=== PATIENT | female | born 1950 | race Caucasian/White ===

== ENCOUNTER → 2017-11-15 | Outpatient (CLI) | payer MEDICARE, OTHER ==
[~2017-11-15] MED LIST: BIMA.03OPS; BRIM.15SO; ESCI10; LEVSOD125; LOSA25; METO25ER PO; TIMDOROPSO; Ventolin/Prove6.7 GM; WARF7.5
== END | disposition home or self-care (01) ==
LOC: LAB 12:32
DX: N39.0 Urinary tract infection, site not specified (principal)
CPT/HCPCS: 87086

== ENCOUNTER → 2017-11-26 | Outpatient (CLI) | payer MEDICARE, OTHER | LOC: LAB 13:19 | DX: N39.0 Urinary tract infection, site not specified (principal) | CPT/HCPCS: 87077; 87086; 87186 ==

== ENCOUNTER → 2019-05-29 | Outpatient (CLI) | payer MEDICARE, OTHER | END | disposition home or self-care (01) | LOC: LAB SHORT 17:14 → LAB 17:14 | DX: R30.0 Dysuria (principal) | CPT/HCPCS: 87077; 87086; 87186 ==

== ENCOUNTER → 2019-11-18 | Outpatient (CLI) | payer MEDICARE, OTHER | END | disposition home or self-care (01) | LOC: LAB FUT 10-26 10:00 → EDSTATUS 10-26 10:00 → LAB SHORT 12:23 → LAB 12:23 | DX: N39.0 Urinary tract infection, site not specified (principal); R30.0 Dysuria | CPT/HCPCS: 87077; 87086; 87186 ==

== ENCOUNTER → 2020-03-09 | Outpatient (CLI) | payer MEDICARE, OTHER | END | disposition home or self-care (01) | LOC: LAB SHORT 17:57 → LAB 17:57 | DX: R30.0 Dysuria (principal) | CPT/HCPCS: 87086 ==

== ENCOUNTER → 2020-08-19 | Outpatient (CLI) | payer MEDICARE, OTHER ==
[~2020-08-19] MED LIST changes: +ALBU90OI INH; +ALPR.25 PO; +ASCO500 PO; +Azopt10 ML BOTHEYES; +B COMPLEX FORM0.4 MG PO; +BIMATOPROST2.5 ML BOTHEYES; +EUTHYROX125 MCG PO; +LOSA50 PO; +MERIBIN5 M1 PO; +Magnesium250 MG PO; +TIMDOROPSO BOTHEYES; +VITAMIN D310 MC4 PO; +WARF7.5 PO; +[UNRECOGNIZED DRUG - OTHER] PO
== END ==
LOC: PLD 10:21 → LAB SHORT 10:21
DX: L08.89 Other specified local infections of the skin and subcutaneous tissue (principal); L72.8 Other follicular cysts of the skin and subcutaneous tissue
CPT/HCPCS: 88304

== ENCOUNTER 2021-01-18 07:24 | Day surgery (SDC) | payer MEDICARE, OTHER ==
[~2021-01-18] VITALS: Ht 170.2 cm; Wt 90.7 kg
[~2021-01-18 07:24] MED LIST changes: +JANTOVEN2.5 M1 PO; +MULVITA PO; +NITR100CA PO; +PSEU120ER PO
--- NOTE | 2021-01-18 09:54 | NUR ---
[employer]ENT SANJAY DID IV START.Ambulatory in Day Surgery. History, Chart, Medications and Allergies reviewed before start of procedure.Patient confirms NPO status and agrees with scheduled surgery. Patient reports completing Chlorhexadine shower X2 prior to admission to hospital.Surgical site prepped with 2% Chlorhexidine cloth wipe. Lungs clear T/O to Auscultation. Patient States Post-Procedure ride home has been arranged WITH .
--- NOTE | 2021-01-18 11:31 | NUR ---
01/18/21 1131 IRINA,PATSY PT UNMBILICUS NOTED TO RED PRIOR TO PREPPING PT, SKIN INTACT, NO DRAINAGE NOTED.
--- NOTE | 2021-01-18 13:08 | NUR ---
Dressing to procedure site clean, dry, intact with no visible drainage, swelling, erythema or bruising noted.
--- NOTE | 2021-01-18 14:12 | NUR ---
Dressing to procedure site clean, dry, intact with no visible drainage, swelling, erythema or bruising noted. Discharge instructions reviewed with patient. Patient verbalizes understanding. Copy given to patient to take home. Discharged via wheelchair to private car for ride home.
== END 2021-01-18 14:13 | disposition home or self-care (01) ==
LOC: ORSCMMR 07:24 → ORD 10:00 → ORSCMMR 14:13
PROVIDERS: Surgery
PROC: BF031ZZ Plain Radiography of Gallbladder and Bile Ducts using Low Osmolar Contrast (ICD-10-PCS; principal; 2021-01-18 09:00)
PROC: 0FT44ZZ Resection of Gallbladder, Percutaneous Endoscopic Approach (ICD-10-PCS; principal; 2021-01-18 09:00)
DX: K80.10 Calculus of gallbladder with chronic cholecystitis without obstruction (principal); I10 Essential (primary) hypertension; J45.909 Unspecified asthma, uncomplicated; E03.9 Hypothyroidism, unspecified; Z79.899 Other long term (current) drug therapy; Z79.01 Long term (current) use of anticoagulants
CPT/HCPCS: 74300; 83690; 88304; A9270; C1729; J0690; J1100; J2250; J2370; J2405; J2704; J2710; J3010; J7120

== ENCOUNTER → 2021-06-18 | Outpatient (CLI) | payer MEDICARE, OTHER | END | disposition home or self-care (01) | LOC: LAB SHORT 13:14 → LAB 13:14 | DX: L98.8 Other specified disorders of the skin and subcutaneous tissue (principal) | CPT/HCPCS: 88305; 88312 ==

== ENCOUNTER → 2021-07-05 | Outpatient (CLI) | payer MEDICARE | LOC: LAB 15:33 → LAB SHORT 15:33 | DX: R30.0 Dysuria (principal) | CPT/HCPCS: 87086 ==

== ENCOUNTER → 2022-06-06 | Outpatient (CLI) | payer MEDICARE | END | disposition home or self-care (01) | LOC: LAB 17:41 → LAB SHORT 17:41 | DX: N39.0 Urinary tract infection, site not specified (principal) | CPT/HCPCS: 87077; 87086; 87186 ==

== ENCOUNTER → 2022-06-30 | Outpatient (CLI) | payer MEDICARE | END | disposition home or self-care (01) | LOC: LAB SHORT 19:05 → LAB 19:05 | DX: N39.0 Urinary tract infection, site not specified (principal) | CPT/HCPCS: 87077; 87086; 87186 ==

== ENCOUNTER → 2023-10-10 | Outpatient (CLI) | payer MEDICARE, OTHER ==
[~2023-10-10] MED LIST changes: +TRAZ50 PO; +XARELTO20 MG PO
== END ==
LOC: LAB SHORT 08:30 → LAB 08:30
DX: N39.0 Urinary tract infection, site not specified (principal)
CPT/HCPCS: 87077; 87086; 87186

== ENCOUNTER → 2023-11-10 | Outpatient (CLI) | payer MEDICARE, OTHER ==
[2023-11-10 14:51] LABS: Source, Urine Clean Catch
[2023-11-10 16:12] LABS: Appearance, Urine Hazy (Clear); Bilirubin, Urine Neg (Neg); Blood, Urine 3+ (Neg); Glucose Qualitative, Urine Neg (Neg); Ketones, Urine Neg (Neg); Leukocyte Esterase, Urine 3+ (Neg); Nitrite, Urine Neg (Neg); Protein, Urine 2+ (Neg); Specific Gravity, Urine 1.005 (1.003-1.022); Urobilinogen, Urine NORM (Normal)
[2023-11-10 16:25] LABS: Color, Urine Pale Yellow (P-Yellow)
[2023-11-10 16:29] LABS: Bacteria Many /hpf; Squamous Epithelial Cells Many /hpf (Few); Transitional Epithelial Cells Rare /hpf (0-Rare); White Blood Cells, Urine 25-50 /hpf (0-5)
== END ==
LOC: LAB 14:48 → LAB SHORT 14:48
PROVIDERS: Physician Assistant
DX: N39.0 Urinary tract infection, site not specified (principal); R30.0 Dysuria
CPT/HCPCS: 81001; 87077; 87086; 87186; 99001

== ENCOUNTER → 2023-11-13 | Outpatient (CLI) | payer MEDICARE, OTHER | LOC: LAB SHORT 10:28 → LAB 10:28 | DX: N39.0 Urinary tract infection, site not specified (principal) | CPT/HCPCS: 87077; 87086; 87186 ==

== ENCOUNTER → 2023-11-24 | Outpatient (CLI) | payer MEDICARE, OTHER | END | disposition home or self-care (01) | LOC: LAB 10:48 → LAB SHORT 10:48 | DX: N39.0 Urinary tract infection, site not specified (principal) | CPT/HCPCS: 87086 ==

== ENCOUNTER → 2024-02-06 | Outpatient (CLI) | payer MEDICARE, OTHER ==
[2024-02-06 15:32] LABS: Source, Urine Clean Catch
[2024-02-06 17:20] LABS: Appearance, Urine Clear (Clear); Bilirubin, Urine Neg (Neg); Blood, Urine 3+ (Neg); Glucose Qualitative, Urine Neg (Neg); Ketones, Urine Neg (Neg); Leukocyte Esterase, Urine 1+ (Neg); Nitrite, Urine Neg (Neg); Protein, Urine Neg (Neg); Urobilinogen, Urine NORM (Normal)
[2024-02-06 17:34] LABS: Color, Urine Pale Yellow (P-Yellow)
[2024-02-06 17:35] LABS: Bacteria Few /hpf; Squamous Epithelial Cells Few /hpf (Few); White Blood Cells, Urine 0-2 /hpf (0-5)
== END | disposition home or self-care (01) ==
LOC: LAB 15:29 → LAB SHORT 15:29
PROVIDERS: Obstetrics & Gynecology
DX: N39.0 Urinary tract infection, site not specified (principal)
CPT/HCPCS: 81001; 87086

== ENCOUNTER → 2025-01-21 | Outpatient (CLI) | payer MEDICARE, OTHER | END | disposition home or self-care (01) | LOC: LAB SHORT 13:46 → LAB 13:46 | DX: N39.0 Urinary tract infection, site not specified (principal) | CPT/HCPCS: 87077; 87086; 87186 ==